=== PATIENT | female | born 1960 | race Caucasian/White ===

== ENCOUNTER 2020-06-20 00:41 | Inpatient (IN) | payer OTHER ==
--- NOTE | 2020-06-20 01:07 | PDOC ---
History of Present Illness - General Chief Complaint: Lightheaded Stated Complaint: DIZZINESS Time Seen by Provider: 06/20/20 01:06 History Source: Patient Exam Limitations: No Limitations - History of Present Illness Initial Comments: 06/20/20 01:06 Anna Rivas is a 60F with PMH HLD, recovered covid-19 infection presenting with a few weeks of worsening dizziness and new onset MATTHEW. Patient had covid-19 in January and has since recovered. Reports for the last few weeks has been having intermittent dizziness described as room-spinning, worse with changes in position, denies falls or syncope, no changes to vision, gait is normal, having sensitivity to bright lights. No prior history of dizziness or BPPV. Worse in the last 3 days, feeling much more dizzy when standing. Also having R frontal MATTHEW, constant, without vision changes. Denies chest pain, palpitations, coughing, fever, chills, SOB, abd pain, urinary sx. Saw PMD Massimo today for evaluation, did not prescribe meclizine, started her on statin for HLD. Past History - Medical History Allergies/Adverse Reactions: Allergies Allergy/AdvReac Type Severity Reaction Status Date / Time No Known Allergies Allergy Verified 06/20/20 00:56 Home Medications: Ambulatory Orders Atorvastatin Ca [Lipitor] 40 mg PO DAILY 06/17/18 Aspirin [ASA -] 81 mg PO DAILY #30 tab.chew 06/21/20 Meclizine HCl [Antivert -] 25 mg PO TID PRN #30 tablet 06/21/20 Cardiac Disorders: No CVA: No COPD: No Diabetes: Yes (PRE) HTN: No Hypercholesterolemia: Yes - Surgical History Abdominal Surgery: Yes (hysterectomy) - Psycho-Social/Smoking History Smoking Status: No Smoking History: Never smoked Have you smoked in the past 12 months: No Number of Cigarettes Smoked Daily: 0 Information on smoking cessation initiated: No - Substance Abuse Hx (Audit-C & DAST Scrn) How often the patient has a drink containing alcohol: Never Score: In Men: 4 or > Positive; In Women: 3 or > Positive: 0 Screen Result (Pos requires Nsg. Audit-10AR): Negative In the last yr the pt used illegal drug/Rx for NonMed reason: No Score: Yes response is considered Positive: 0 Screen Result (Positive result requires Nsg. DAST-10): Negative Review of Systems - Review of Systems Constitutional: No: Symptoms Reported HEENTM: No: Eye Pain, Blurred Vision Respiratory: No: Symptoms reported Cardiac (ROS): No: Symptoms Reported ABD/GI: No: Symptoms Reported : No: Symptoms Reported Musculoskeletal: No: Symptoms Reported Integumentary: No: Symptoms Reported Neurological: Yes: Headache, Weakness, Unsteady Gait, Ataxia, Dizziness Endocrine: No: Symptoms Reported Hematologic/Lymphatic: No: Symptoms Reported All Other Systems: Reviewed and Negative *Physical Exam - Vital Signs Last Vital Signs Temp Pulse Resp BP Pulse Ox 97.8 F 61 16 144/91 100 06/20/20 00:53 06/20/20 00:53 06/20/20 00:53 06/20/20 00:53 06/20/20 00:53 - Physical Exam General Appearance: Yes: Nourished, Appropriately Dressed, Other (in bed in NAD, eyes closed). No: Apparent Distress HEENT: positive: EOMI, DAYNE, Normal Voice, Symmetrical, Hearing Grossly Normal. negative: Pharyngeal Erythema, Tonsillar Exudate, Tonsillar Erythema Neck: positive: Trachea midline, Normal Thyroid, Supple. negative: Tender, Rigid, Decreased range of motion, Stridor, Lymphadenopathy (R), Lymphadenopathy (L) Respiratory/Chest: positive: Lungs Clear, Normal Breath Sounds. negative: Chest Tender, Respiratory Distress, Accessory Muscle Use, Crackles, Rales, Stridor, Wheezing Cardiovascular: positive: Regular Rhythm, Regular Rate Gastrointestinal/Abdominal: positive: Normal Bowel Sounds, Flat, Soft. negati ve: Tender, Organomegaly, Guarding, Rebound, Hernia Musculoskeletal: positive: Normal Inspection. negative: CVA Tenderness, Decreased Range of Motion, Vertebral Tenderness Extremity: positive: Normal Capillary Refill, Normal Inspection, Normal Range of Motion, Pelvis Stable. 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 head impulse negative for saccades. no nystagmus. no skew. ). negative: Motor Strength 5/5 (4/5 strength to all extremities equally), Facial Droop, Numbness, Sensory Deficit ED Treatment Course - LABORATORY CBC & Chemistry Diagram: 06/21/20 07:15 06/21/20 07:15 Medical Decision Making - Medical Decision Making 06/20/20 04:51 Patient presents with worsening dizziness and MATTHEW, no history of prior cardiac disease or dizziness. Exam notable for unsteady gait, HINTS exam unremarkable for peripheral vertigo, 4/5 motor strength. High concern for fall with unsteady gait and truncal ataxia. Concerned for posterior CVA, ddx includes BPPV, cardiac disease, electrolyte disturbance. Ordered CBC/CMP/CP/ECG/CXR, CT head non/con for evaluation of ICH. Treating dizziness with trial PO meclizine, IV NS and Reglan for MATTHEW. ECG shows sinus bradycardia, HR 53, QTc 420, no REMEDIOS/D or TWI. CXR unremarkable. CT head no acute IC pathology. Patient dizziness improved after IVF and meclizine but still having persistent MATTHEW and weakness. Needs to stay for further evaluation of posterior CVA with AM MRI and neurology evaluation. Discussed case with EMMANUEL Mcmilaln, accepts for admission to stroke tele for posterior CVA evaluation. Discharge - Discharge Information Problems reviewed: Yes Clinical Impression/Diagnosis: Dizziness, Ataxia Condition: Stable Disposition: HOME - Follow up/Referral - Patient Discharge Instructions - Post Discharge Activity
--- NOTE | 2020-06-20 01:13 | PDOC ---
Attending Attestation - Resident Resident Name: Darrel French - ED Attending Attestation I have performed the following: I have examined & evaluated the patient, The case was reviewed & discussed with the resident, I agree w/resident's findings & plan - HPI HPI: 06/20/20 02:18 see resident hpi - Physicial Exam PE: 06/20/20 02:18 see resident exam - Medical Decision Making 06/20/20 02:20 60-year-old female with dizziness Patient does have history of similar episodes in the past but states she does not use meclizine at this time and did not take any prior to arrival Previous CT scan showed a hypodensity in the basal ganglia and not believed to be infarct There is no previous MRI for referral Plan for meclizine and IV fluids, repeat CT scan If not completely resolved on reevaluation will admit for MRI and further evaluation Discharge - Discharge Information Problems reviewed: Yes Clinical Impression/Diagnosis: Dizziness, Ataxia Condition: Fair - Follow up/Referral Referrals: Michael Keys MD [Primary Care Provider] - - Patient Discharge Instructions - Post Discharge Activity
[2020-06-20] MEDS ORDERED: SODIUM CHLORIDE 1,000 ML IV STA (02:16)
[2020-06-20] MEDS ORDERED: MECLIZINE HCL 25 MG TABLET (FP) PO ONE (02:16)
[2020-06-20] MEDS ORDERED: MECLIZINE HCL 25 MG TABLET (FP) ONE (02:26)
[2020-06-20 02:28] LABS: BASO % 0.7 % (0-2.0); EOS % 1.9 % (0-4.5); HEMATOCRIT 42.4 % (32.4-45.2); HEMOGLOBIN 14.3 GM/dL (10.7-15.3); LYMPH % 29.2 % (8-40); MCH 31.8 pg (25.7-33.7); MCHC 33.7 g/dl (32.0-36.0); MEAN CELL VOLUME 94.4 fl (80-96); MEAN PLT VOLUME 9.6 fl (7.5-11.1); MONO % 7.5 % (3.8-10.2); NEUT % 60.7 % (42.8-82.8); PLATELET COUNT 284 K/MM3 (134-434); RBC 4.49 M/mm3 (3.60-5.2); RDW 12.9 % (11.6-15.6); WHITE BLOOD COUNT 7.7 K/mm3 (4.0-10.0)
[2020-06-20 02:32] LABS: PH,URINE 5.5 (5.0-8.0); URINE APPEARANCE CLEAR; URINE BILIRUBIN NEGATIVE (NEGATIVE); URINE COLOR YELLOW; URINE GLUCOSE (UA) NEGATIVE (NEGATIVE); URINE KETONE NEGATIVE (NEGATIVE); URINE LEUK ESTERASE NEGATIVE (NEGATIVE); URINE NITRITE NEGATIVE (NEGATIVE); URINE PROTEIN NEGATIVE (NEGATIVE); URINE UROBILINOGEN 0.2 mg/dL (0.2-1.0)
[2020-06-20 02:47] LABS: INR 0.93 (0.83-1.09)
[2020-06-20 02:49] LABS: ACTIVATED PTT 34.1 SECONDS (25.2-36.5)
[2020-06-20 02:55] LABS: ALBUMIN 4.2 g/dl (3.4-5.0); ALK PHOS 72 U/L (45-117); ANION GAP 4 MMOL/L (8-16); BILIRUBIN,TOTAL 0.5 mg/dL (0.2-1); BLOOD UREA NITROGEN 16.4 mg/dL (7-18); CHLORIDE 104 mmol/L (98-107); CO2 31 mmol/L (21-32); CREATININE 1.1 mg/dL (0.55-1.3); GLUCOSE,RANDOM 94 mg/dL (74-106); MAGNESIUM 2.4 mg/dL (1.8-2.4); POTASSIUM 4.5 mmol/L (3.5-5.1); SGOT/AST 21 U/L (15-37); SGPT/ALT 30 U/L (13-61); SODIUM 140 mmol/L (136-145); TOT PROT 7.6 g/dl (6.4-8.2)
[2020-06-20] MEDS ORDERED: METOCLOPRAMIDE HCL INJECTION 10 MG/2 ML VIAL IVPUSH ONE (03:08)
[2020-06-20] MEDS ORDERED: METOCLOPRAMIDE HCL INJECTION 10 MG/2 ML VIAL ONE (03:39)
[2020-06-20] MEDS ORDERED: SODIUM CHLORIDE 0.9% 500 ML INFUS.BAG IV ONE (04:24)
--- NOTE | 2020-06-20 04:49 | HP ---
Admitting History and Physical - Primary Care Physician PCP: Michael Keys - Admission Chief Complaint: Headache, Dizziness History of Present Illness: This is a 60 y/o female with a PMHx of HLD, Prediabetes, COVID + 01/2020. Who presents to the ED with headache, dizziness x several weeks worse yesterday. Patient reports having dizziness, tinnitus, visual changes, and left sided weakness. She reports having an episode of dizziness while driving to visit her son recently. Patient denies fall or trauma. Patient denies slurred speech. Patient denies fever, chills, cough, SOB, CP, palpitations, AP, N/V/D, constipation, dysuria. Patient denies sick contacts or travel. History Source: Patient Limitations to Obtaining History: No Limitations - Past Medical History Cardiovascular: Yes: Hyperlipdemia Infectious Disease: Yes: Other (COVID +) Endocrine: Yes: Other (Pre Diabetes) - Past Surgical History Past Surgical History: Yes: (x2), Hysterectomy - Smoking History Smoking history: Never smoked Have you smoked in the past 12 months: No Aproximately how many cigarettes per day: 0 - Alcohol/Substance Use Hx Alcohol Use: No History of Substance Use: reports: None - Social History Usual Living Arrangement: Yes: With Child ADL: Independent History of Recent Travel: No Home Medications - Allergies Allergies/Adverse Reactions: Allergies Allergy/AdvReac Type Severity Reaction Status Date / Time No Known Allergies Allergy Verified 06/20/20 00:56 - Home Medications Home Medications: Ambulatory Orders Meclizine HCl [Antivert] 25 mg PO TID PRN #14 tablet 09/24/12 Atorvastatin Ca [Lipitor] 10 mg PO DAILY 06/17/18 Family Medical History Family History: As Documented Family Hx Coronary Artery Disease: Mother (HTN, HLD-) Family Hx Nuerologic Problems: Mother (CVA x4- ) Review of Systems - Review of Systems Constitutional: reports: Weakness Eyes: reports: Photophobia, Recent Change in Vision HENT: reports: Ringing in Ears Neck: reports: No Symptoms Cardiovascular: reports: No Symptoms Respiratory: reports: No Symptoms Gastrointestinal: reports: No Symptoms Genitourinary: reports: No Symptoms Breasts: reports: No Symptoms Reported Musculoskeletal: reports: Muscle Weakness Integumentary: reports: No Symptoms Neurological: reports: Dizziness, Headache, Unsteady Gait Endocrine: reports: No Symptoms Hematology/Lymphatic: reports: No Symptoms Psychiatric: reports: No Symptoms Pain Intensity: 6 Physical Examination Vital Signs: Vital Signs Temperature 97.8 F 06/20/20 00:53 Pulse Rate 61 06/20/20 00:53 Respiratory Rate 16 06/20/20 00:53 Blood Pressure 144/91 06/20/20 00:53 O2 Sat by Pulse Oximetry (%) 100 06/20/20 00:53 Constitutional: Yes: No Distress, Calm Eyes: Yes: WNL, Conjunctiva Clear, EOM Intact, PERRL HENT: Yes: WNL, Atraumatic, Normocephalic Neck: Yes: WNL, Supple, Trachea Midline Cardiovascular: Yes: Regular Rate and Rhythm, S1, S2 Respiratory: Yes: WNL, Regular, CTA Bilaterally Gastrointestinal: Yes: WNL, Normal Bowel Sounds, Soft ...Rectal Exam: Yes: Deferred Renal/: Yes: WNL Breast(s): Yes: WNL Musculoskeletal: Yes: WNL Extremities: Yes: WNL Edema: No Peripheral Pulses WNL: Yes Neurological: Yes: Paresthesia, Weakness. No: Dysarthria, Facial Droop ...Motor Strength: LUE (4/5), LLE (4/5), RUE (5/5), RLE (5/5) Psychiatric: Yes: WNL, Alert, Oriented Labs: CBC, BMP 06/20/20 02:08 06/20/20 02:08 Laboratory Results - last 24 hr 06/20/20 06/20/20 06/20/20 02:08 02:08 02:08 WBC 7.7 RBC 4.49 Hgb 14.3 Hct 42.4 MCV 94.4 MCH 31.8 MCHC 33.7 RDW 12.9 Plt Count 284 MPV 9.6 Absolute Neuts (auto) 4.7 Neutrophils % 60.7 Lymphocytes % 29.2 Monocytes % 7.5 Eosinophils % 1.9 Basophils % 0.7 Nucleated RBC % 0 PT with INR 11.00 INR 0.93 PTT (Actin FS) 34.1 Sodium Potassium Chloride Carbon Dioxide Anion Gap BUN Creatinine Est GFR (CKD-EPI)AfAm Est GFR (CKD-EPI)NonAf Random Glucose Calcium Magnesium Total Bilirubin AST ALT Alkaline Phosphatase Creatine Kinase Creatine Kinase Index CK-MB (CK-2) Troponin I Total Protein Albumin TSH Urine Color Yellow Urine Appearance Clear Urine pH 5.5 Ur Specific [place] 1.005 L Urine Protein Negative Urine Glucose (UA) Negative Urine Ketones Negative Urine Blood Negative Urine Nitrite Negative Urine Bilirubin Negative Urine Urobilinogen 0.2 Ur Leukocyte Esterase Negative 06/20/20 02:08 WBC RBC Hgb Hct MCV MCH MCHC RDW Plt Count MPV Absolute Neuts (auto) Neutrophils % Lymphocytes % Monocytes % Eosinophils % Basophils % Nucleated RBC % PT with INR INR PTT (Actin FS) Sodium 140 Potassium 4.5 Chloride 104 Carbon Dioxide 31 Anion Gap 4 L BUN 16.4 Creatinine 1.1 Est GFR (CKD-EPI)AfAm 62.75 Est GFR (CKD-EPI)NonAf 54.14 Random Glucose 94 Calcium 9.0 Magnesium 2.4 Total Bilirubin 0.5 AST 21 ALT 30 Alkaline Phosphatase 72 Creatine Kinase 249 H Creatine Kinase Index 0.6 CK-MB (CK-2) 1.5 Troponin I < 0.02 Total Protein 7.6 Albumin 4.2 TSH 1.40 Urine Color Urine Appearance Urine pH Ur Specific [place] Urine Protein Urine Glucose (UA) Urine Ketones Urine Blood Urine Nitrite Urine Bilirubin Urine Urobilinogen Ur Leukocyte Esterase Intake & Output 06/17/20 06/18/20 06/19/20 06/20/20 23:59 23:59 23:59 23:59 Weight 69.4 kg Imaging - Results Chest X-ray: Image Reviewed Cat Scan: Report Reviewed, Image Reviewed EKG: Image Reviewed Problem List - Problems (1) TIA (transient ischemic attack) Assessment/Plan: NIHSS [address]- no ICH, mass or lesion Appreciate Neurology consult- ED resident placed call, awaiting call back Neuro checks EKG- reviewed Chest Xray image reviewed Continue cardiac monitoring Carotid Doppler in am Swallow eval Monitor CBC, BMP Asa Continue Lipitor Code(s): G45.9 - TRANSIENT CEREBRAL ISCHEMIC ATTACK, UNSPECIFIED (2) Dizziness Assessment/Plan: see above Code(s): R42 - DIZZINESS AND GIDDINESS (3) Ataxia Assessment/Plan: see above Fall Precautions Code(s): R27.0 - ATAXIA, UNSPECIFIED (4) HLD (hyperlipidemia) Assessment/Plan: Stable Continue Lipitor Monitor LFTs Code(s): E78.5 - HYPERLIPIDEMIA, UNSPECIFIED (5) Encounter for screening laboratory testing for COVID-19 virus Assessment/Plan: Low Risk COVID PCR-pending Isolation Precautions Code(s): Z11.59 - ENCOUNTER FOR SCREENING FOR OTHER VIRAL DISEASES Assessment/Plan This is a 60 y/o female with a PMHx of HLD, Prediabetes, COVID + 01/2020. Admitted to Telemetry for TIA, Dizziness, Ataxia for further evaluation of their emergent condition. Plan: See Problem List FEN D5.45%NS@42ml/hr Replete lytes prn NPO DVT ppx OOB SCDs Heparin SQ (after MRI, Neuro consult) Dispo: Requires Inpatient Care Visit type - Emergency Visit Emergency Visit: Yes ED Registration Date: 06/20/20 Care time: The patient presented to the Emergency Department on the above date and was hospitalized for further evaluation of their emergent condition. - New Patient This patient is new to me today: Yes Date on this admission: 06/20/20 - Critical Care Critical Care patient: No
[2020-06-20] MEDS: DEXTROSE 5%-0.45% SALINE 1,000 ML IV SCH (05:20)
--- NOTE | 2020-06-20 07:30 | PN ---
Progress Note, Physician - Current Medication List Current Medications: Active Medications Aspirin (Asa -) 81 mg PO DAILY GERARDO Atorvastatin Calcium (Lipitor -) 40 mg PO HS GERARDO Dextrose/Sodium Chloride (D5-1/2ns -) 1,000 mls @ 42 mls/hr IV ASDIR GERARDO Last Admin: 06/20/20 05:20 Dose: 42 mls/hr Documented by: - Objective Vital Signs: Vital Signs Temperature 97.8 F 06/20/20 00:53 Pulse Rate 58 L 06/20/20 06:34 Respiratory Rate 18 06/20/20 06:34 Blood Pressure 125/74 06/20/20 06:34 O2 Sat by Pulse Oximetry (%) 98 06/20/20 06:34 Cardiovascular: Yes: S1, S2 Respiratory: Yes: Regular, CTA Bilaterally Gastrointestinal: Yes: Normal Bowel Sounds, Soft Neurological: Yes: Alert, Oriented. No: Facial Droop, Pre-Existing Deficit Labs: CBC, BMP 06/20/20 02:08 06/20/20 02:08 INR, PTT INR 0.93 (0.83-1.09) 06/20/20 02:08 Problem List - Problems (1) TIA (transient ischemic attack) Assessment/Plan: Brain CT- no ICH, mass or lesion Neurology consult Neuro checks Continue cardiac monitoring Carotid Doppler Swallow eval Monitor CBC, BMP Asa Continue Lipitor Code(s): G45.9 - TRANSIENT CEREBRAL ISCHEMIC ATTACK, UNSPECIFIED (2) COVID-19 Assessment/Plan: in january Low Risk COVID PCR-pending Isolation Precautions Code(s): U07.1 - COVID POSITIVE (3) Dizziness Assessment/Plan: - see above Code(s): R42 - DIZZINESS AND GIDDINESS (4) HLD (hyperlipidemia) Code(s): E78.5 - HYPERLIPIDEMIA, UNSPECIFIED
--- NOTE | 2020-06-20 09:10 | CON.NEURO ---
Consult Consult Specialty:: Felicia Referred by:: ER - History of Present Illness History of Present Illness: 60-year-old right-handed female patient with history of carotid 19 that was diagnosed in January 2020 comes in to the hospital with chief complaint of headache and dizziness patient describes the headache as 10 out of 10 throbbing in nature with feeling lightheaded no report of any loss of consciousness patient with no prior similar symptoms in the emergency room patient had a CAT scan of the head which revealed no evidence of acute OCCUPATIONAL THERAPIST pathology. - History Source History Provided By: Patient Limitations to Obtaining History: No Limitations - Past Medical History Cardio/Vascular: Yes: Hyperlipdemia Infectious Disease: Yes: Other (COVID +) Endocrine: Yes: Other (Pre Diabetes) - Past Surgical History Past Surgical History: Yes: (x2), Hysterectomy - Alcohol/Substance Use Hx Alcohol Use: No History of Substance Use: reports: None - Smoking History Smoking history: Never smoked Have you smoked in the past 12 months: No Aproximately how many cigarettes per day: 0 - Social History ADL: Independent History of Recent Travel: No Home Medications - Allergies Allergies/Adverse Reactions: Allergies Allergy/AdvReac Type Severity Reaction Status Date / Time No Known Allergies Allergy Verified 06/20/20 00:56 - Home Medications Home Medications: Ambulatory Orders Meclizine HCl [Antivert] 25 mg PO TID PRN #14 tablet 09/24/12 Atorvastatin Ca [Lipitor] 40 mg PO DAILY 06/17/18 Family Medical History Family History: Unremarkable Family Hx Coronary Artery Disease: Mother (HTN, HLD-) Family Hx Nuerologic Problems: Mother (CVA x4- ) Review of Systems - Review of Systems Neurological: reports: Dizziness, Headache, Incoordination Physical Exam-Neuro Vital Signs: Vital Signs Temperature 97.8 F 06/20/20 07:30 Pulse Rate 60 06/20/20 07:30 Respiratory Rate 16 06/20/20 07:30 Blood Pressure 128/61 06/20/20 07:30 O2 Sat by Pulse Oximetry (%) 100 06/20/20 07:30 Constitutional: Yes: Well Nourished Neck: Yes: WNL Cardiovascular: Yes: WNL Labs: CBC, BMP 06/20/20 02:08 06/20/20 02:08 INR, PTT INR 0.93 (0.83-1.09) 06/20/20 02:08 - Neuro Exam Level Of Consciousness: Yes: Oriented to Person, Oriented to Place, Oriented to Time Eyes: Yes: PERRLA Speech: WNL Dominant Hand: Right Cranial Nerves II-XII Intact: Yes Gag: Present DTR's: 1+ Left Bicep, 1+ Right Bicep, 1+ Left Tricep, 1+ Right Tricep Response to light touch: Normal Response to pain prick: Normal Response to temperature: Normal Motor Strength: 3/5: Left Arm, Right Arm, Left Leg, Right Leg Gait: Deferred Imaging - Results Cat Scan: Image Reviewed Problem List - Problems (1) Ataxia Code(s): R27.0 - ATAXIA, UNSPECIFIED (2) COVID-19 Code(s): U07.1 - COVID POSITIVE (3) Dizziness Code(s): R42 - DIZZINESS AND GIDDINESS Assessment/Plan no evidence of acute central nervous system pathology. Check ESR. MRI of the brain with no contrast. Fioricet when necessary headache. Meclizine 12.5 twice daily. Follow-up the CoviD testing results
[2020-06-20 10:22] LABS: CHOLESTEROL 249 mg/dL (50-200); HDL CHOLESTEROL 44 mg/dL (40-60); LDL CHOLESTEROL (ONLY SJRH) 175 mg/dL (5-100); TRIGLYCERIDES 135 mg/dL (0-150)
[2020-06-20] MEDS ORDERED: ASPIRIN 81 MG CHEWABLE TABLETS ONE (10:31)
[2020-06-20] MEDS: ASPIRIN 81 MG CHEWABLE TABLETS PO SCH (10:37)
--- NOTE | 2020-06-20 11:06 | CON.CARD ---
Consult Consult Specialty:: Cardiology Referred by:: Wayne Reason for Consultation:: dizziness, htn - History of Present Illness Chief Complaint: dizziness History of Present Illness: 60 y/o female with a PMHx of HLD, Prediabetes, COVID + 01/2020 admitted with headache, dizziness x several weeks worse yesterday. Patient reports having dizziness, tinnitus, visual changes, and left sided weakness, occurred while supine. No chest pain, palpitations or syncope. ECG sbrady @ 50 BPM CXR lisa CTH neg MRI neg Carotids negative - History Source History Provided By: Patient, Medical Record - Past Medical History Cardio/Vascular: Yes: Hyperlipdemia Infectious Disease: Yes: Other (COVID +) Endocrine: Yes: Other (Pre Diabetes) - Past Surgical History Past Surgical History: Yes: (x2), Hysterectomy - Alcohol/Substance Use Hx Alcohol Use: No History of Substance Use: reports: None - Smoking History Smoking history: Never smoked Have you smoked in the past 12 months: No Aproximately how many cigarettes per day: 0 - Social History ADL: Independent History of Recent Travel: No Home Medications - Allergies Allergies/Adverse Reactions: Allergies Allergy/AdvReac Type Severity Reaction Status Date / Time No Known Allergies Allergy Verified 06/20/20 00:56 - Home Medications Home Medications: Ambulatory Orders Meclizine HCl [Antivert] 25 mg PO TID PRN #14 tablet 09/24/12 Atorvastatin Ca [Lipitor] 40 mg PO DAILY 06/17/18 Family Medical History Family History: Unremarkable Family Hx Coronary Artery Disease: Mother (HTN, HLD-) Family Hx Nuerologic Problems: Mother (CVA x4- ) Vital Signs: Vital Signs Temperature 97.8 F 06/20/20 07:30 Pulse Rate 60 06/20/20 07:30 Respiratory Rate 16 06/20/20 07:30 Blood Pressure 128/61 06/20/20 07:30 O2 Sat by Pulse Oximetry (%) 100 06/20/20 07:30 Constitutional: Yes: No Distress, Calm Eyes: Yes: Conjunctiva Clear, EOM Intact HENT: Yes: Atraumatic, Normocephalic Neck: Yes: Trachea Midline Respiratory: Yes: CTA Bilaterally Gastrointestinal: Yes: Normal Bowel Sounds, Soft Cardiovascular: Yes: Regular Rate and Rhythm JVD: No Carotid Bruit: No PMI: Non-Displaced Heart Sounds: Yes: S1, S2 Extremities: Yes: WNL Edema: No Peripheral Pulses WNL: Yes - Other Data Labs, Other Data: CBC, BMP 06/20/20 02:08 06/20/20 02:08 INR, PTT INR 0.93 (0.83-1.09) 06/20/20 02:08 Troponin, BNP 06/20/20 06/20/20 02:08 09:15 Troponin I < 0.02 < 0.02 Troponin, BNP 06/20/20 06/20/20 02:08 09:15 Troponin I < 0.02 < 0.02 Imaging - Results Chest X-ray: Report Reviewed (lisa) Cat Scan: Report Reviewed (neg) MRI: Report Reviewed (neg) EKG: Report Reviewed (sbrady normal ecg) Other: Report Reviewed (carotid duplex neg) Assessment/Plan 60 y/o female with a PMHx of HLD, Prediabetes, COVID + 01/2020 admitted with headache, dizziness x several weeks worse yesterday. Patient reports having dizziness, tinnitus, visual changes, and left sided weakness, occurred while supine. No chest pain, palpitations or syncope. 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 -no need for telemetry or inpatient CV workup. -observe bp -symptomatic rx per neurology. -will see as needed.
[2020-06-20 12:47] VITALS: BMI 27.3
--- NOTE | 2020-06-20 14:59 | EKG ---
Test Reason : Blood Pressure : / mmHG Vent. Rate : 053 BPM Atrial Rate : 053 BPM P-R Int : 138 ms QRS Dur : 088 ms QT Int : 448 ms P-R-T Axes : 060 034 056 degrees QTc Int : 420 ms SINUS BRADYCARDIA OTHERWISE NORMAL ECG WHEN COMPARED WITH ECG OF 17-JUN-2018 12:44, NO SIGNIFICANT CHANGE WAS FOUND Confirmed by JOHNNA DEWITT MD ([id number]) on 06/20/2020 2:59:03 PM Referred By: Confirmed By:JOHNNA DEWITT MD
[2020-06-20 15:09] LABS: IRON SERUM 56 ug/dL (50-175); TOTAL IRON BINDING CAPACITY 289 ug/dL (250-450)
[2020-06-20] MEDS ORDERED: ATORVASTATIN CA 40 MG TABLET (FP) PO SCH (22:00)
[2020-06-21 08:21] LABS: BASO % 0.7 % (0-2.0); EOS % 2.4 % (0-4.5); HEMATOCRIT 39.1 % (32.4-45.2); HEMOGLOBIN 13.4 GM/dL (10.7-15.3); MCH 32.1 pg (25.7-33.7); MCHC 34.2 g/dl (32.0-36.0); MONO % 6.7 % (3.8-10.2); NEUT % 54.2 % (42.8-82.8); PLATELET COUNT 250 K/MM3 (134-434); RBC 4.16 M/mm3 (3.60-5.2); RDW 12.9 % (11.6-15.6); WHITE BLOOD COUNT 6.2 K/mm3 (4.0-10.0)
[2020-06-21 08:48] LABS: ALBUMIN 3.5 g/dl (3.4-5.0); BILIRUBIN,TOTAL 0.9 mg/dL (0.2-1); BLOOD UREA NITROGEN 15.6 mg/dL (7-18); CALCIUM 9.1 mg/dL (8.5-10.1); POTASSIUM 4.2 mmol/L (3.5-5.1); TOT PROT 6.5 g/dl (6.4-8.2)
--- NOTE | 2020-06-21 08:59 | DS ---
Physical Examination Vital Signs: Vital Signs Temperature 98 F 06/21/20 05:19 Pulse Rate 52 L 06/21/20 05:19 Respiratory Rate 18 06/21/20 05:19 Blood Pressure 127/71 06/21/20 05:19 O2 Sat by Pulse Oximetry (%) 98 06/21/20 05:19 Findings/Remarks: This is a 60 y/o female with a PMHx of HLD, Prediabetes, COVID + 01/2020. Who presents to the ED with headache, dizziness x several weeks worse yesterday. Patient reports having dizziness, tinnitus, visual changes, and left sided weakness. She reports having an episode of dizziness while driving to visit her son recently. Patient denies fall or trauma. Patient denies slurred speech. Patient denies fever, chills, cough, SOB, CP, palpitations, AP, N/V/D, constipation, dysuria. Patient denies sick contacts or travel. Constitutional: Yes: Well Nourished, No Distress, Calm Cardiovascular: Yes: Regular Rate and Rhythm Respiratory: Yes: Regular, CTA Bilaterally Gastrointestinal: Yes: Normal Bowel Sounds, Soft Renal/: Yes: WNL Musculoskeletal: Yes: WNL Extremities: Yes: WNL Edema: No Peripheral Pulses WNL: Yes Neurological: Yes: Alert, Oriented Psychiatric: Yes: Alert, Oriented Labs: CBC, BMP 06/21/20 07:15 06/21/20 07:15 Discharge Summary Problems reviewed: Yes Reason For Visit: TINGING SENSATION IN FACE,DIZZINESS,VERTIGO Current Active Problems Ataxia (Acute) COVID-19 (Acute) Dizziness (Acute) Encounter for screening laboratory testing for COVID-19 virus (Acute) HLD (hyperlipidemia) (Acute) TIA (transient ischemic attack) (Acute) Condition: Stable - Instructions Disposition: VNS/HOME HEALTH CARE - Home Medications Comprehensive Discharge Medication List: Ambulatory Orders Meclizine HCl [Antivert] 25 mg PO TID PRN #14 tablet 09/24/12 Atorvastatin Ca [Lipitor] 40 mg PO DAILY 06/17/18 Prescription Drug Monitoring Program (I-STOP) results: I-STOP reviewed and no issues identified
[2020-06-21 09:37] VITALS: BP 139/76; PULSE 61; TEMP 97.8
[2020-06-21] MEDS: ASPIRIN 81 MG CHEWABLE TABLETS PO SCH (10:41)
[2020-06-21] MEDS: DEXTROSE 5%-0.45% SALINE 1,000 ML IV SCH (10:48)
== END 2020-06-21 13:27 | disposition home or self-care (01) | DRG 149 ==
LOC: JER 00:41 → JERBED 01:54 → J4W 11:37
PROVIDERS: ADMIT Internal Medicine; ATTEND Family Medicine
DX: R42 Dizziness and giddiness (principal); R27.0 Ataxia, unspecified; E78.5 Hyperlipidemia, unspecified; R51 Headache
CPT/HCPCS: 36415; 70450-TC; 70551-TC; 71045-TC-FY; 80053; 80061; 81003; 82550; 82553; 82607; 83540; 83550; 83721; 83735; 84443; 84484; 85025; 85610; 85730; 93005; 93010; 93880-TC; 97116-GP; 97161-GP; 99285-25; U0003